=== PATIENT | female | born 1965 | race Hispanic/Latino ===

== ENCOUNTER 2017-10-08 22:36 | Emergency (ER) | payer OTHER ==
[2017-10-08 23:02] VITALS: TEMP 98.1; O2SAT 98
--- NOTE | 2017-10-09 00:03 | C.PDOC ---
History Of Present Illness 52 yo female c/o garlic in the right nare. Pt notes she heard that it helps congestion and sinuses therefore put a slice of garlic in her nare 1-2 hours ago. Notes she tried to blow her nose but was unable to get it out. Admits to high BP "when stressed". Has never been treated for HTN. Has not seen her PMD in "years". Denies headache, dizziness, chest pain, sob or any other symptoms. Time Seen by Provider: 10/08/17 23:12 Chief Complaint (Nursing): Foreign Body History Per: Patient, Family History/Exam Limitations: no limitations Onset/Duration Of Symptoms: Hrs Current Symptoms Are (Timing): Still Present Past Medical History Vital Signs: Last Vital Signs Temp 98.1 F 10/08/17 22:57 Pulse 98 H 10/09/17 00:08 Resp 20 10/09/17 00:08 BP 180/116 H 10/09/17 00:08 Pulse Ox 98 10/09/17 00:08 Family History: States: Unknown Family Hx - Social History Hx Alcohol Use: No Hx Substance Use: No Review Of Systems Except As Marked, All Systems Reviewed And Found Negative. Constitutional: Negative for: Fever ENT: Positive for: Nose Congestion. Negative for: Throat Swelling Physical Exam - Physical Exam Appears: Well, Non-toxic, No Acute Distress Skin: Normal Color, Warm, Dry Head: Atraumatic, Normacephalic Eye(s): bilateral: Normal Inspection, EOMI Nose: Other ((+) FB in right nare) Oral Mucosa: Moist Throat: Normal, No Erythema, No Exudate Neck: Normal, Normal ROM, Supple Chest: Symmetrical Cardiovascular: Rhythm Regular Respiratory: Normal Breath Sounds, No Accessory Muscle Use Back: Normal Inspection Extremity: Normal ROM Neurological/Psych: Oriented x3, Normal Speech, Normal Cognition ED Course And Treatment O2 Sat by Pulse Oximetry: 98 Progress Note: FB removed with extractor without injury. Pt notes full piece was removed. Patient was noted to have a elevate BP durning this ED visit. I discussed this with the pt and instructed it should be repeated several times over the next week. Discsused risks of untreated BP and stressed the importance of follow up in 1-2 days. Case discussed with Dr Leiva, agreed upon plan and treatment. Disposition - Disposition Referrals: Ry Shaw MD [Staff Provider] - Disposition: HOME/ ROUTINE Disposition Time: 00:02 Condition: STABLE Additional Instructions: Follow up with primary medical doctor in 1-3 days without fail for further evaluation. Return to the emergency department at any time if symptoms persist or worsen. Prescriptions: amLODIPine [Norvasc] 10 mg PO DAILY #20 tab Instructions: Nasal Foreign Body in Children (ED), Chronic Hypertension (ED) Forms: [employer] (Serbian) - Clinical Impression Clinical Impression: Foreign body in nose, HTN (hypertension)
[2017-10-09 00:09] VITALS: BP 180/116; PULSE 98; RESP 20
== END 2017-10-09 00:22 | disposition home or self-care (01) ==
LOC: C.ER 22:36
DX: T17.1XXA Foreign body in nostril, initial encounter (principal); X58.XXXA Exposure to other specified factors, initial encounter; I10 Essential (primary) hypertension